=== PATIENT | female | born 1985 | race Two or more races ===

== ENCOUNTER 2019-08-03 05:25 | Inpatient (IN) | payer OTHER ==
[~2019-08-03] VITALS: Ht 165.1 cm; Wt 86.2 kg
[2019-08-03] MEDS ORDERED: PRENATAL TABLE1 EAC1 PO (06:20)
[2019-08-05] MEDS ORDERED: DUI500 PO (13:47)
[2019-08-05] MEDS ORDERED: IBUPROFEN400 MG PO (13:48)
[2019-08-05] MEDS ORDERED: DOCUSATE SODIU100 MG PO (13:48)
== END 2019-08-05 14:24 | DRG 807 ==
LOC: LDR 05:25 → OB/GYN 05:25
PROVIDERS: ADMIT Obstetrics & Gynecology; ATTEND Obstetrics & Gynecology
PROC: 10E0XZZ Delivery of Products of Conception, External Approach (ICD-10-PCS; principal; 2019-08-03)
PROC: 0W8NXZZ Division of Female Perineum, External Approach (ICD-10-PCS; 2019-08-03)
PROC: 4A0HXFZ Measurement of Products of Conception, Cardiac Rhythm, External Approach (ICD-10-PCS; 2019-08-03)
DX: O80 Encounter for full-term uncomplicated delivery (principal); Z37.0 Single live birth; Z3A.39 39 weeks gestation of pregnancy